=== PATIENT | male | born 1965 | race African-American/Black ===

== ENCOUNTER 2023-07-05 09:48 | Emergency (ER) | payer MEDICARE, SELFPAY ==
[2023-07-05] VITALS (16 sets, daily range): BP systolic 108–124; BP diastolic 80–90; PULSE 63–83; RESP 12–20; TEMP 36.4; O2SAT 94–99
--- NOTE | ~2023-07-05 | CT_ITS ---
EXAMINATION: CT brain wo con DATE: 07/05/2023 10:12 INDICATION: Intracranial hemorrhage TECHNIQUE: Computed tomography (CT) of the head was performed without intravenous contrast. Sagittal and coronal reconstructions were performed. The mA was adjusted according to patient size. Iterative reconstruction technique was employed. The dose-length product was 605.33 mGy-cm. COMPARISON: None FINDINGS: There is a small subdural hematoma overlying the right frontal lobe with which measures up to 10 mm i n maximal thickness. This exerts some local mass effect with effacement of a few of the overlying sul ci but no evident midline shift. No acute infarction. Symmetric prominence of the sulci and and subar achnoid spaces overlying the convexities consistent with mild age-appropriate diffuse cerebral volume loss. Ventricles are normal and symmetric. No mass/mass effect. No fracture. The orbits, paranasal sinuses and mastoid air cells are normal. IMPRESSION: 1. Small right frontal subdural hematoma. Reviewed, dictated and finalized at location A. R INSTALLER
--- NOTE | ~2023-07-05 | CT_ITS ---
EXAMINATION: CT brain wo con DATE: 07/05/2023 14:14 INDICATION: Subdural hematoma. TECHNIQUE: Computed tomography (CT) of the head was performed without intravenous contrast. The mA wa s adjusted according to patient size. Iterative reconstruction technique was employed. The dose-lengt h product was 529.67 mGy-cm. COMPARISON: Head CT at 10:12 AM FINDINGS: There is a right frontal subdural hematoma that is mixed hyperdense, isodense, and hypodens e to sims matter with maximum thickness of 10 mm. There is no acute ischemic infarct or abnormal mass lesion. There are scattered areas of low attenuation in the cerebral white matter, which is within n ormal limits for the patient's age. The ventricles are normal in size. The orbits are normal. There i s mild mucosal thickening in the paranasal sinuses. The mastoid air cells are normal. IMPRESSION: 1. Stable acute right frontal subdural hematoma. Reviewed, dictated and finalized at location E. IFIED NUTRITIONIST
--- NOTE | 2023-07-05 11:12 | ED.GENADULT ---
HPI - General Adult General Chief complaint: Head Injury Stated complaint: brain bleed on MRI Time Seen by Provider: 07/05/23 10:07 History of Present Illness HPI narrative: Patient is 58-year-old male with history of schizophrenia presents to the emergency department this more after a correction was contacted regarding results of an MRI which she had yesterday showing a small subdural hematoma. Patient lives in a correction and throughout the past few weeks has been experiencing decline in his short-term memory. Patient saw Dr. Campos on the of this month with Neurology regarding his short-term memory. Patient was recently taken off some of his psychiatric medications as it was thought that they may be contributing to his symptoms. Caregiver who is present at bedside is unsure why the MRI was ordered the patient had it done yesterday at [facility] and this morning they were contacted and asked to come to our facility for further evaluation. Patient is currently denying any symptoms and has no neurological deficits. Patient denies any chest pain, shortness of breath, nausea, vomiting, abdominal pain, dysuria, hematuria, constipation, diarrhea, melena, hematochezia, fevers or chills. Patient also denies any headaches, dizziness, lightheadedness, blurry visions, focal weakness, numbness and or tingling. There are no other modifying, alleviating, or precipitating factors at this time. Related Data Home Medications Medication Instructions Recorded Confirmed acetaminophen 325 mg capsule 325 mg PO Q6H PRN 06/21/23 aluminum-mag hydroxide-simethicone 5 ml PO ONCE 06/21/23 200 mg-200 mg-20 mg/5 mL oral susp (Antacid Liquid) atorvastatin 20 mg tablet 20 mg PO DAILY 06/21/23 desvenlafaxine 100 mg 100 mg PO DAILY 06/21/23 tablet,extended release 24 hr famotidine 20 mg tablet 20 mg PO DAILY 06/21/23 hydrochlorothiazide 25 mg tablet 25 mg PO DAILY 06/21/23 lancets 28 gauge (Easy Touch 06/21/23 Lancets) magnesium hydroxide 2,400 mg/10 mL 10 ml PO QHS PRN 06/21/23 oral suspension (Milk Of Magnesia Concentrated) neomycin-bacitracn Zn-polymyx 3.5 1 applic topical DAILY 06/21/23 mg-400 unit-5,000 unit/gram top oint (Triple Antibiotic) nystatin-triamcinolone topical applic topical 06/21/23 cream valbenazine 40 mg capsule 40 mg PO DAILY 06/21/23 (Ingrezza) Allergies Allergy/AdvReac Type Severity Reaction Status Date / Time No Known Allergies Allergy Verified 07/05/23 10:00 Review of Systems Review of Systems: All systems are reviewed and are negative unless stated otherwise in the HPI. [facility] Social History Social History Smoking packs per day: 0 Smoking cigarettes per day: 0.0 Years smoked: 0 Smoking pack-years: 0.00 Smoking status: Unknown if ever smoked Second hand tobacco smoke exposure: No Alcohol intake: never Drinks per week: 0 Substance use: never Substance use type: does not use Do You Feel Safe in your Home?: Yes Lack of Transportation: No Lack of Food: Never True Current Housing: I Have Housing Concerned About Future Housing: No Difficulty Paying Gas/Electric Bills: No Difficulty Paying for Meds: No Currently Unemployed: No Education: Don't Know Difficulty w/ Childcare or Family Care: No Exam Narrative: General: Alert, awake, afebrile, in no acute distress. HEENT: PERRL, no rhinorrhea, no post nasal drip, oropharynx clear. Neck: Trachea midline, no JVD, no lymphadenopathy. Cardiovascular: Regular rate and rhythm, no murmurs, rubs or gallops, no peripheral edema. Respiratory: Clear to auscultation bilaterally, no tachypnea, no wheezing, no rhonchi, no rubs, no respiratory distress. Abdomen: Soft, nontender, nondistended, no rebound, no guarding, no peritoneal signs. Musculoskeletal: No joint swelling or deformity, normal muscle tone. Skin: No rashes or petechia, no signs of infec
== END 2023-07-05 14:49 | disposition home or self-care (01) ==
PROVIDERS: Emergency Provider Emergency Medicine; PCP Nurse Practitioner Family
DX: I62.00 Nontraumatic subdural hemorrhage, unspecified (principal); F20.9 Schizophrenia, unspecified; F79 Unspecified intellectual disabilities
CPT/HCPCS: 70450; 99284